=== PATIENT | female | born 1995 | race Hispanic/Latino ===

== ENCOUNTER 2018-01-16 13:27 | Emergency (ER) | payer MEDICAID, OTHER ==
[2018-01-16 13:39] VITALS: O2SAT 99
--- NOTE | 2018-01-16 14:51 | ED PDOC ---
HPI: Female Pain Chief Complaint (Provider): vaginal bleeding History Per: Patient History/Exam Limitations: no limitations Onset/Duration Of Symptoms: Days Quality Of Discomfort: "Pain" Associated Symptoms: Fever. denies: Chills Additional Complaint(s): 22 yo F with no significant known medical hx presented to ED with complaint of fever x5 days and bleeding x1 week. LMP 10/15/17. States she did not know she was until 12/22, not sure how far along she is. States for abt 1 week she has been spotting, and this morning passed some clots. Has not yet begun care as states the only rn endoscopy she likes does not accept her insurance anymore. Has been going between [facility] and another providers office so far. Called [facility] on 2 days ago when she had fever, was told that she can take tylenol, but she did not, however took 400mg advil this morning because bleeding and pain got worse. Endorses frequency of urination, and states she feels irritation "in the vagina " when she urinates. PMD: [facility] OB hx: ; 1 SAB, 3 elective surgical terminations, no hx STD No other medical hx No other surgeries No chronic medications Denies smoking, drugs; states she had alcohol before she found out she was Allergies: doxycycline, food allergies (apple, orange, strawberry) Fam hx noncontributory <Neida Slaughter - Last Filed: 01/16/18 15:19> <William Robert - Last Filed: 01/16/18 17:58> Time Seen by Provider: 01/16/18 14:17 Chief Complaint (Nursing): Female Genitourinary Supervising Attending Note - Supervising Attending Note The Documented history was done by the: Physician Arborer The documented physical exam was done by the: Physician Arborer The documented procedures were done by the: Physician Arborer - Attestation: I have personally seen and examined this patient.: Yes I have fully participated in the care of the patient.: Yes I have reviewed all pertinent clinical information, including history, physical exam and plan: Yes - Notes: Notes:: Vaginal bleeding/clots. Pelvic cramps. <William Robert - Last Filed: 01/16/18 17:58> Past Medical History Reviewed: Vital Signs Vital Signs: Last Vital Signs Temp 99.2 F 01/16/18 13:31 Pulse 80 01/16/18 13:31 Resp 18 01/16/18 13:31 BP 119/81 01/16/18 13:31 Pulse Ox 99 01/16/18 13:31 - Medical History PMH: No Chronic Diseases - Surgical History Other surgeries: 3 elective surgical termination of - Family History Family History: States: Unknown Family Hx - Social History Alcohol: Occasional (has not drank since found out she was ) Drugs: Denies - Immunization History Hx Tetanus Toxoid Vaccination: No Hx Influenza Vaccination: No Hx Pneumococcal Vaccination: No <Neida Slaughter - Last Filed: 01/16/18 15:19> Vital Signs: Last Vital Signs Temp 99.2 F 01/16/18 13:31 Pulse 80 01/16/18 13:31 Resp 18 01/16/18 13:31 BP 119/81 01/16/18 13:31 Pulse Ox 99 01/16/18 15:39 <William Robert - Last Filed: 01/16/18 17:58> - Home Medications Home Medications: Ambulatory Orders Medication Instructions Recorded DiphenhydrAMINE [Benadryl] 25 mg PO .Q4-6 H #30 cap 03/18/16 Famotidine [Pepcid] 20 mg PO BID #20 tab 03/18/16 predniSONE [predniSONE Tab] 2 tab PO DAILY #8 tab 03/18/16 - Allergies Allergies/Adverse Reactions: Allergies Allergy/AdvReac Type Severity Reaction Status Date / Time doxycycline Allergy Intermediate RASH Verified 03/18/16 17:46 apple Allergy Verified 03/14/16 16:49 ORANGE Allergy Verified 03/14/16 16:49 strawberry Allergy Verified 03/14/16 16:49 Review of Systems ROS Statement: Except As Marked, All Systems Reviewed And Found Negative Gastrointestinal: Positive for: Nausea Genitourinary Female: Positive for: Dysuria, Frequency, Vaginal Bleeding <Neida Slaughter - Last Filed: 01/16/18 15:19> Physical Exam - Reviewed Vital Signs Reviewed: Yes - Physical Exam Appears: Positive for: No Acute Distress Head Exam: Positive for: NORMAL INSPECTION Skin: Positive for: Normal Color, Warm, Dry Eye Exam: Positive for: EOMI ENT: Positive for: Normal ENT Inspection Cardiovascular/Chest: Positive for: Regular Rate, Rhythm, Chest Non Tender Respiratory: Positive for: Normal Breath Sounds. Negative for: Respiratory Distress Gastrointestinal/Abdominal: Positive for: Bowel Sounds, Soft, Tenderness (lower abdominal) Pelvic Exam: Positive for: Other (pt declined/refused pelvic exam) Extremity: Negative for: Tenderness, Pedal Edema, Deformity Neurologic/Psych: Positive for: Alert, Oriented <Neida Slaughter - Last Filed: 01/16/18 15:19> - Physical Exam Cardiovascular/Chest: Positive for: Regular Rate, Rhythm Respiratory: Positive for: Normal Breath Sounds Gastrointestinal/Abdominal: Positive for: Tenderness (across pelvis) Pelvic Exam: Positive for: Other <William Robert - Last Filed: 01/16/18 17:58> - ECG O2 Sat by Pulse Oximetry: 99 <Neida Slaughter - Last Filed: 01/16/18 15:19> - Laboratory Results Result Diagrams: 01/16/18 16:00 01/16/18 16:00 Interpretation Of Abn Labs: elevated bhcg - ECG Pulse Ox Interpretation: Normal - CT Scan/US US Other Rad Studies (CT/US): Read By Radiologist Other Rad Interpretation: no acute findings or iup - Progress ED Course And Treament: 1752: Stable. Spoke with Dr. Harper. Made aware of presentation, history, physical, and findings. States with no findings on ultrasound and bhcg being so high at greater then 6000, pt. miscarrying and not an ectopic. Wants pt. to fu in 2 days here or obgyn for repeat US and bhcg. <William Robert - Last Filed: 01/16/18 17:58> Medical Decision Making Medical Decision Making: Abdominal pain/bleeding in - CBC - CMP - Type and screen - Upreg - Udip/UA - CMP - 1L NS Pt refused pelvic exam and transvaginal ultrasound; transabdominal u/s ordered. Discussed with patient that pelvic exam would allow for visualizing blood in vaginal vault, as well as evaluation of cervical motion tenderness. Pt verbalized understanding but continued to refuse exam. Pt seen with Dr. Robert. Pending labs and u/s. <Neida Slaughter - Last Filed: 01/16/18 15:19> Disposition <Neida Slaughter - Last Filed: 01/16/18 15:19> - Patient ED Disposition Is Patient to be Admitted: No Counseled Patient/Family Regarding: Studies Performed, Diagnosis, Need For Followup - Disposition Disposition: Routine/Home Disposition Time: 17:55 <William Robert - Last Filed: 01/16/18 17:58> - Clinical Impression Clinical Impression: Incomplete - Disposition [facility] - 01[facility]19[facility]18 Condition: STABLE Additional Instructions: Return in 2 days or go to your obgyn in 2 days for repeat ultrasound and bhcg measurement. Any dizziness, weakness, pain, excessive bleeding, or not feeling right, come back right away. Instructions: Miscarriage Forms: [facility] ([place]ian), [facility] ED School/Work Excuse
[2018-01-16] MEDS ORDERED: Sodium Chloride 0.9% 1,000 ML IV STA (15:04)
[2018-01-16 15:43] LABS: SQUAMOUS EPITHIAL 1 /hpf (0-5); URINE BACTERIA RARE (<OCC); URINE BILIRUBIN NEGATIVE (NEGATIVE); URINE BLOOD MODERATE (NEGATIVE); URINE CLARITY SLIGHTY-CLOUDY (Clear); URINE COLOR YELLOW (YELLOW); URINE GLUCOSE (UA) NEG (Normal); URINE LEUKOCYTE ESTERASE NEG Leu/uL (Negative); URINE PROTEIN NEGATIVE (NEGATIVE); URINE UROBILINOGEN 0.2-1.0 mg/dL (0.2-1.0)
[2018-01-16 16:04] LABS: BASO # 0.1 K/uL (0.0-0.2); BASO % 0.8 % (0.0-2.0); EOS # 0.1 K/uL (0.0-0.7); EOS % 0.7 % (0.0-4.0); HEMOGLOBIN 12.7 g/dL (12.0-16.0); LYMPH # 1.6 K/uL (1.0-4.3); MEAN CELL VOLUME 89.3 fl (81.0-99.0); MEAN CORPUSCULAR HEMOGLOBIN 30.1 pg (27.0-31.0); MEAN CORPUSCULAR HGB CONC 33.7 g/dL (33.0-37.0); MEAN PLATELET VOLUME 8.8 fl (7.2-11.7); MONO # 0.6 K/uL (0.0-0.8); MONO % 7.7 % (0.0-10.0); NEUT # 5.7 K/uL (1.8-7.0); NEUT % 70.8 % (50.0-75.0); RBC 4.22 Mil/uL (3.80-5.20); RED CELL DISTRIBUTION WIDTH 12.4 % (11.5-14.5)
[2018-01-16 16:14] LABS: BLOOD UREA NITROGEN 11 mg/dl (7-17); CALCIUM 9.5 mg/dL (8.4-10.2); GFR NON-AFRICAN AMERICAN > 60
[2018-01-16 16:15] LABS: ALB/GLOB RATIO 1.2 (1.0-2.1); ALBUMIN 4.7 g/dL (3.5-5.0); ALT/SGPT 14 U/L (9-52); AST/SGOT 24 U/L (14-36)
--- NOTE | 2018-01-16 17:09 | US ---
Date of service: 01/16/2018 PROCEDURE: OB Pelvic Ultrasound HISTORY: Heavy bleeding Beta HCG results: 6391.5. LMP: 10/15/2017. COMPARISON: None available. FINDINGS: UTERUS: Uterus measures 3.2 x 4.8 x 7.8 cm. Endometrial echo complex 9.4 mm. No ultrasound findings to suggest gestational sac, fluid, debris, mass or polyp or other pathologic process within the endometrium. CERVIX: Measures 3.9 cm cm. Long and closed. No cervical abnormality seen. RIGHT OVARY: Measures 1.1 x 2.2 x 3.8 cm. No mass lesion. Normal flow. Simple cyst 1.1 x 2.2 x 1.8 cm LEFT OVARY: Measures 2.5 x 1 x 2.72 cm. No solid mass. Normal flow. FREE FLUID: None. OTHER FINDINGS: None. IMPRESSION: No visible intrauterine products of conception. No acute findings related to/accounting for the clinical presentation. Additional benign and/or incidental findings described above.
[2018-01-16 19:32] VITALS: BP 118/70; PULSE 70; RESP 16; TEMP 98.2
== END 2018-01-16 18:30 | disposition home or self-care (01) ==
LOC: H.ER 13:27
DX: O03.4 Incomplete spontaneous abortion without complication (principal)
CPT/HCPCS: 76815; 80053; 81003; 81025; 84702; 85025; 86850; 86900; 96360; 96361; 99283; J7030